=== PATIENT | female | born 1950 | race Caucasian/White ===

== ENCOUNTER 2017-07-30 09:27 | Day surgery (SDC) | payer OTHER, MEDICARE ==
[2017-07-22 11:37] VITALS: BMI 34.7
[2017-07-30] MEDS ORDERED: DEXAMETHASONE SOD PHOSPHATE 4 MG/1 ML VIAL ONE (11:05)
[2017-07-30] MEDS ORDERED: KETOROLAC TROMETHAMINE 30 MG/1 ML VIAL ONE (11:05)
[2017-07-30] MEDS ORDERED: LIDOCAINE HCL/PF 2% SDV 5ML VIAL ONE (11:05)
[2017-07-30] MEDS ORDERED: ONDANSETRON 4 MG/2 ML VIAL ONE (11:05)
[2017-07-30] MEDS ORDERED: PROPOFOL 20 ML ONE (11:06)
[2017-07-30] MEDS ORDERED: MIDAZOLAM HCL 2 MG/2 ML SINGLE DOSE VIAL ONE ×2 (11:06→12:28)
[2017-07-30] MEDS ORDERED: BUPIVACAINE HCL/PF 0.5% (5MG/ML) 10 ML VIAL ONE (11:43)
[2017-07-30] MEDS ORDERED: BUPIVACAINE HCL/PF 2.5 MG/ML - 30 ML VIAL IJ ONE (12:01)
[2017-07-30] MEDS ORDERED: ceFAZolin SODIUM 1 GM VIAL ONE (12:38)
[2017-07-30] MEDS ORDERED: BUPIVACAINE HCL/PF 0.25% (2.5MG/ML) 10 ML VIAL IJ ONE (13:03)
[2017-07-30 14:36] VITALS: TEMP 97.9
[2017-07-30 15:06] VITALS: BP 112/73; PULSE 73
--- NOTE | 2017-08-02 13:11 | OP ---
DATE OF OPERATION: 07/30/2017 SURGEON: Gvain Amanda MD EDUCATION RN: TYE Evangelista PREOPERATIVE DIAGNOSES: 1. Right knee medial and lateral meniscal tear. 2. Right knee cartilage injury. 3. Right knee synovitis. POSTOPERATIVE DIAGNOSES: 1. Right knee medial and lateral meniscal tear. 2. Right knee cartilage injury. 3. Right knee synovitis. PROCEDURES: 1. Right knee arthroscopy with partial meniscectomy of medial and lateral meniscus. 2. Right knee arthroscopy with chondroplasty and abrasion-plasty. 3. Right knee arthroscopy with synovectomy/major. CPT codes 42822, 11909, 10691. FINDINGS: 1. Medial meniscus body and posterior horn tear. 2. Lateral meniscus body and posterior horn tear. 3. Synovitis, patellofemoral and medial and lateral notch area. 4. Anterior grade 2 cartilage injury medial and femoral condyle. 5. ACL and PCL intact. 6. Anterior grade 1-2 cartilage injury lateral tibial plateau. 7. Anterior grade 1-2 cartilage injury patellofemoral and trochlea with smaller grade 4 changes anterior patellofemoral and trochlea. PROCEDURE: Informed consent was obtained. The patient was taken to the operating room where the right lower extremity was prepped and draped in a sterile fashion. A tourniquet was placed on the right upper thigh, but not inflated. Using standard arthroscopic technique, a lateral incision and portal were made which allowed for introduction of the camera into the suprapatellar bursa. This was then taken to the medial joint line where under direct visualization, a medial incision and portal were made. Excessive synovium noted in the medial, lateral, patellofemoral and notch area was removed by the up-biting shaver and Bovie cautery. This was found to bring inflammatory tissue into the joint surface, a source of joint pain and dysfunction. Probing of the medial and lateral meniscus found tears described in the findings. These were removed with an up-biting shaver and taken back to a stable rim. Grade 2-3 degenerative changes were treated with chondroplasty, removing all flaking surfaces with low setting Bovie used along the periphery. Grade 4 changes were treated with abrasion-plasty. All areas of the knee were once again re-examined. The knee was then drained. A single suture was placed on all portals. Sterile dressing was placed. The patient was transferred to the recovery room. GAVIN AMANDA M.D. [id number]
--- NOTE | 2017-08-04 14:14 | PATH ---
Surgical Pathology Report Patient Name: SONALI RING [facility]. Rec. #: [id number] /Age/Gender: 1950 (Age: 67) / F Account: [id number] Location: [facility] AMB[facility] Taken: 07/30/2017 Received: 07/30/2017 Reported: 08/04/2017 Physicians: Eddie Pérez M.D. Specimen(s) Received RIGHT KNEE SHAVINGS Clinical History Right knee internal derangement Final Diagnosis KNEE, RIGHT, ARTHROSCOPIC SHAVINGS: CARTILAGE AND FIBROSYNOVIIAL TISSUE SHOWING CHONDROCALCINOSIS (PSEUDOGOUT). Electronically Signed Juanita Edgar M.D. Gross Description Received in formalin, labeled "right knee shavings," is a 4.0 x 2.8 x 0.3 cm. aggregate of thao-yellow soft tissue fragments. A human resources hr representative portion is submitted in one cassette. 08/03/201708/03/2017
== END 2017-07-30 15:18 | disposition home or self-care (01) ==
LOC: FASU 09:27
PROVIDERS: ATTEND Orthopaedic Surgery
PROC: 0SBC4ZZ Excision of Right Knee Joint, Percutaneous Endoscopic Approach (ICD-10-PCS; 2017-07-30)
PROC: 0SBC4ZZ Excision of Right Knee Joint, Percutaneous Endoscopic Approach (ICD-10-PCS; 2017-07-30)
PROC: 0SBC4ZZ Excision of Right Knee Joint, Percutaneous Endoscopic Approach (ICD-10-PCS; principal; 2017-07-30 11:00)
DX: S83.241A Other tear of medial meniscus, current injury, right knee, initial encounter (principal); S83.281A Other tear of lateral meniscus, current injury, right knee, initial encounter; S83.8X1A Sprain of other specified parts of right knee, initial encounter; M65.861 Other synovitis and tenosynovitis, right lower leg; X58.XXXA Exposure to other specified factors, initial encounter; Y93.9 Activity, unspecified; Y92.9 Unspecified place or not applicable
CPT/HCPCS: 88304-TC; 94760